=== PATIENT | male | born 1995 | race Caucasian/White ===

== ENCOUNTER 2016-04-19 18:57 | Emergency (ER) | payer MEDICAID ==
[2016-04-19 19:19] VITALS: TEMP 98.1
[2016-04-19] MEDS ORDERED: IBUPROFEN 600 MG TAB PO ONE (21:37)
[2016-04-19] MEDS ORDERED: PENICILLIN VK 250MG PREPACK#6 BTL TAKEHOME ONE (21:38)
--- NOTE | 2016-04-19 21:46 | EDPHY ---
H & P Time Seen by Provider: 04/19/16 21:16 HPI/ROS: HPI Dental pain. 21-year-old male by private vehicle. This patient complains of left upper tooth pain which she has had on and off for about a year. However, it has been worsening over the last 3 days. He reports having a small protrusion of his buccal mucosa associated with the left upper molars. He states that he noticed this 2 days ago. He has also had some mild facial swelling and is concerned he may have a dental infection. ROS: Constitutional: No fever, no chills. No weakness. Eyes: No discharge. No changes in vision. ENT: No sore throat. No nasal congestion or rhinorrhea. As above. Musculoskeletal: No neck pain. Skin: No rashes. Neurological: No headache. Past medical history: None. Social history: [employer] Physical Exam: General Appearance: Alert, no distress. This patient is responding to questions appropriately and in full sentences. This patient appears well- hydrated and well-nourished. Eyes: Pupils equal and round no pallor or injection. No lid edema, erythema or injection. ENT, Mouth: Mucous membranes are moist. The pharyngeal tissues are unremarkable. No edema or swelling. No asymmetry suggestive of abscess. No erythema or exudates. Vague tenderness on apical compression of the left upper molars. No denis gingival swelling. He has a small callus that is adjacent to the left upper 2nd molar where he has a filling. He does have some subtle diffuse facial swelling involving his left cheek. No erythema, no warmth, no crepitus over this area. Neurological: Motor sensory function is grossly intact. Cranial nerves are normal. Gait is normal. Skin: Warm and dry, no rashes. Musculoskeletal: Neck is supple and nontender. No lymphadenopathy. Extremities are symmetrical. All joints range without pain or impingement. Psychiatric: No agitation. No depression. Database: EKG: Imaging: Procedures: Emergency department course: 9:40 p.m., medication allergies reviewed. He was started on penicillin, 500 mg given in the emergency department. He was given 600 mg of ibuprofen. He took some hydrocodone prior to coming to the emergency department. Plan will be to prescribe him high-dose penicillin as well as ibuprofen for pain, hydrocodone for breakthrough pain. Follow up with dentist for re-evaluation within the next 1-2 days. He is in agreement with this plan. Return to emergency department precautions were thoroughly reviewed with him. All of his questions were answered. He was discharged in good condition. Differential Diagnosis: The differential diagnosis on this patient includes but is not limited to dental infection, dental caries. Dry socket, acute dental trauma unlikely. This represents a partial list of diagnoses considered. These considerations are based on history, physical exam, past history, reassessment and diagnostic testing. Smoking Status: Never smoked Constitutional: Initial Vital Signs Temperature (C) 36.7 C 04/19/16 19:17 Heart Rate 61 04/19/16 19:17 Respiratory Rate 18 04/19/16 19:17 Blood Pressure 157/94 H 04/19/16 19:17 O2 Sat (%) 98 04/19/16 19:17 O2 Delivery Mode Room Air Allergies/Adverse Reactions: No Known Allergies Allergy (Unverified 04/19/16 19:17) Home Medications: Medication Instructions Recorded Penicillin V Potassium [Pen Vk 500 mg PO QID #30 tab 04/19/16 500mg (*)] MDM/Departure - Depart Disposition: Home, Routine, Self-Care Clinical Impression: Pain, dental, Dental infection Condition: Good Instructions: Toothache (ED) Additional Instructions: Read and follow provided instructions. Follow-up with a dentist through [facility] or through the [facility] within the next 1-2 days for re-evaluation. You may need referral to an oral surgeon as well. Take medication as prescribed through entire course of treatment. Ibuprofen dosin mg every 6 hours with meals for the next 3 days only. Chili/Percocet dosin-2 every 4-6 hours for [address] Do not drive on this medication. Return to the emergency department for worsening pain, facial swelling, fever or other serious concerns. Prescriptions: Penicillin V Potassium [Pen Vk 500mg (*)] 500 mg PO QID #30 tab Referrals: [facility] [Outside] - As per Instructions [facility] [Outside] - As per Instructions
[2016-04-19] MEDS ORDERED: HYDROCOD/APAP 5/325 PREPACK#6 BTL TAKEHOME ONE (21:50)
[2016-04-19 22:26] VITALS: BP 136/88; PULSE 65; RESP 16; O2SAT 96
== END 2016-04-19 22:26 | disposition home or self-care (01) ==
DX: K08.89 Other specified disorders of teeth and supporting structures (principal); K04.7 Periapical abscess without sinus